=== PATIENT | female | born 1940 | race Caucasian/White ===

== ENCOUNTER → 2019-11-13 09:01 | Outpatient (CLI) | payer MEDICARE, BC, SELFPAY ==
--- NOTE | 2019-11-13 | DI.ECHO.S_ITS ---
[place] [facility] +---------+ : : [address] [place] [place] : : : : [id number] : : : : Phone: [phone]+ Echocardiogram Report + + :Name: MCKAYLA MEJIA Study Date: 11/13/2019 Height: 62 in : :[facility] Weight: 110 lb : : Gender: Female BSA: 1.5 m2 : :: 1940 Age: 79 yrs BP: 142/64 mmHg: :Reason For Study: Murmur : : Performed By: Caity Piedra : :Referring: JEFFREY NIETO L : + + Interpretation Summary The ejection fraction is estimated to be 60-65%. There is mild aortic valve sclerosis. There is mild aortic regurgitation. There is mild tricuspid regurgitation. The right ventricular systolic pressure is estimated to be at least 28 mmHg based on an estimated right atrial pressure of 3 mm Hg. Procedure: A two-dimensional transthoracic echocardiogram with color flow and Doppler was performed. The study quality was technically adequate. There is no prior echocardiogram noted for this patient. The patient was in normal sinus rhythm during the exam. Left Ventricle: There is moderate proximal septal thickening noted. The left ventricle is normal in size. The LVOT velocity is 1.03 m/s. The left ventricular outflow velocity with valsalva is 1.50m/s. The ejection fraction is estimated to be 60-65%. Left ventricular wall motion is normal. Diastolic parameters suggest probable normal left ventricular diastolic function and normal filling pressures. Right Ventricle: The right ventricle is normal in size and function. Atria: Both atria are normal in size. There is no Doppler evidence for an interatrial shunt. Mitral Valve: The mitral valve is normal in structure and function. There is trace mitral regurgitation. Aortic Valve: The aortic valve opens well. The aortic valve is trileaflet. There is mild aortic valve sclerosis. There is no aortic valve stenosis. There is mild aortic regurgitation. Tricuspid Valve: The tricuspid valve is normal in structure and function. There is mild tricuspid regurgitation. The right ventricular systolic pressure is estimated to be at least 28 mmHg based on an estimated right atrial pressure of 3 mm Hg. Pulmonic Valve: The pulmonic valve is normal in structure and function. There is mild pulmonic regurgitation. Great Vessels: The aortic root is normal size. The ascending aorta is mildly enlarged. The IVC is of normal diameter and collapses greater than 50% with a sniff. This suggests a low right atrial pressure of 3 mm Hg. Pericardium/ Pleura There is no pericardial effusion. MMode/2D Measurements & Calculations LVIDd: 4.1 cm LVOT diam: 1.9 cm LVIDs: 2.5 cm Ao root diam: 3.0 cm FS: 39.1 % asc Aorta Diam: 3.5 cm EPSS: 0.32 cm Ao Arch Diam (Prox Trans): 2.6 cm IVSd: 0.88 cm LVPWd: 0.97 cm LV santana. diameter/BSA (cm/m^2): 2.8 LV sys. diameter/BSA (cm/m^2): 1.7 LA A2 area: 16.7 cm2 RA long axis: 4.6 cm LA A4 area: 15.5 cm2 RA area: 14.0 cm2 LA length (vol): 4.7 cm RA vol: 36.2 ml LA vol: 46.5 ml RA : 24.4 ml/m2 LA vol index: 31.4 ml/m2 IVC diam: 0.92 cm RVD1 (basal): 3.4 cm RVD2 (mid): 2.8 cm TAPSE: 1.8 cm Doppler Measurements & Calculations Ao V2 max: 152.0 cm/sec LVOT Max Bharat: 149.3 cm/sec Ao V2 mean: 114.6 cm/sec LV V1 max P.9 mmHg Ao max P.2 mmHg LV V1 VTI: 35.1 cm Ao mean P.6 mmHg ANDRY(I,D): 2.9 cm2 Ao V2 VTI: 34.4 cm ANDRY(V,D): 2.8 cm2 sev ratio: 1.0 ANDRY indexed to BSA (cm^2/m^2): 2.0 AI P1/2t: 495.8 msec AI dec slope: 213.5 cm/sec2 MV E max bharat: 91.8 cm/sec TR max bharat: 251.2 cm/sec MV A max bharat: 100.4 cm/sec TR max P.3 mmHg MV E/A: 0.91 PA V2 max: 80.8 cm/sec Med Peak E' Bharat: 6.4 cm/sec PA V2 mean: 60.0 cm/sec E/E' med: 14.3 PA mean P.6 mmHg Lat Peak E' Bharat: 6.7 cm/sec PA pr(Accel): 22.9 mmHg E/E' lat: 13.6 E/e' average: 14.0 MV dec time: 0.23 sec MV P1/2t: 64.3 msec MV P1/2t max bharat: 93.2 cm/sec SV(LVOT): 99.7 ml MVA(2t): 3.4 cm2 Reading Physician:11:07 AM
== END ==
PROVIDERS: PCP Internal Medicine; Referring Provider Internal Medicine; Visit Provider Internal Medicine
DX: R01.1 Cardiac murmur, unspecified (principal)
CPT/HCPCS: 93306

== ENCOUNTER 2020-09-30 12:17 | Emergency (ER) | payer MEDICARE, OTHER, SELFPAY ==
[2020-09-30 12:19] VITALS: BP 203/95; PULSE 85; RESP 16; TEMP 36.7; O2SAT 100
--- NOTE | 2020-09-30 12:45 | DI.RAD.S_ITS ---
PROCEDURE: XR FOOT RT MIN 3V INDICATIONS: r/o FB on foot pad btw 3-4 toe, patient stepped on glass TECHNIQUE: 3 views of the foot were acquired. COMPARISON: None. FINDINGS: Bones: No fractures or dislocations. No suspicious bony lesions. Soft tissues: No tibiotalar joint effusion. Achilles tendon appears normal. IMPRESSION: No foreign body or trauma found. 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 Dictated by: Oswaldo Major M.D. on 09/30/2020 at 13:44 Approved by: Oswaldo Major M.D. on 09/30/2020 at 13:45
--- NOTE | 2020-09-30 12:52 | ED_ITS ---
HPI - Extremity Injury (Lower) <CELIA Real - Last Filed: 09/30/20 14:54> General Chief Complaint: Extremity Injury, Lower Stated Complaint: RIGHT FOOT PAIN Time Seen by Provider: 09/30/20 12:20 Source: patient Mode of arrival: Ambulatory Limitations: no limitations History of Present Illness HPI Narrative: 79yo female presents the emergency department for concerns about last in her right foot. She states approximately 2 weeks ago she stepped on some glass, her family member removed a piece of it. However, when healed she developed a callus. She is concerned she may still have glass in her foot. She states it may be a corn but when she called to make an appointment with the chair installer, they referred her to the ER to rule out any glass in her foot. Patient states that she has chronic right foot numbness from back surgeries in 2017, no worsening of this. Fifth toe not present. Patient denies any further injury, fevers, chills, nausea, vomiting, diarrhea, or any other concerns. Review of Systems <CELIA Real - Last Filed: 09/30/20 14:54> Review of Systems Narrative: REVIEW OF SYSTEMS: GENERAL: Denies fever or chills. HENT: No head trauma. CARDIOVASCULAR: No chest pain or syncope. RESPIRATORY: No cough. GASTROINTESTINAL: No nausea or vomiting. GENITOURINARY: No flank pain. MUSCULOSKELETAL: Complains of foot pain, see HPI. INTEGUMENTARY: No rash. Patient History <CELIA Real - Last Filed: 09/30/20 14:54> Medical History No significant medical problems Surgical History History of back surgery Social History Smoking Status: Never smoker Smoking Status: Never smoker alcohol intake frequency: 0-2 drinks per day Substance Use Type: does not use Exam <CELIA Real - Last Filed: 09/30/20 14:54> Initial Vital Signs Initial Vital Signs: Vital Signs Temperature 98.1 F 09/30/20 12:19 Pulse Rate 85 09/30/20 12:19 Respiratory Rate 16 09/30/20 12:19 Blood Pressure 203/95 H 09/30/20 12:19 Pulse Oximetry 100 09/30/20 12:19 PHYSICAL EXAMINATION: GENERAL: Awake and alert, answers questions appropriately. HENT: Normocephalic, atraumatic. EYES: Symmetrical, sclera white, no periorbital swelling. CARDIOVASCULAR: Regular rate. RESPIRATORY: Normal respiratory rate, trachea midline, airway patent. No stridor, nasal flaring or accessory muscle use. MUSCULOSKELETAL: A small 1-2 cm callus noted on foot pad between 3rd and 4th toe. Fifth toe not present on foot. No surrounding erythema or ecchymosis, small amount of tenderness noted with palpation to this area. Normal gait and coordination. Equal tone and mass bilaterally. EXTREMITIES: CMS intact. No pedal edema. SKIN: Warm, dry, soft, appropriate color for ethnicity. No lesions, rashes, or wounds. NEURO: Alert and Oriented X 3. No sensory deficits. PSYCH: Appropriate affect and mood. <Em Jean DO - Last Filed: 09/30/20 18:29> Initial Vital Signs Initial Vital Signs: Vital Signs Temperature 98.1 F 09/30/20 12:19 Pulse Rate 85 09/30/20 12:19 Respiratory Rate 16 09/30/20 12:19 Blood Pressure 203/95 H 09/30/20 12:19 Pulse Oximetry 100 09/30/20 12:19 Course <CELIA Real - Last Filed: 09/30/20 14:54> Orders Ordered: ED Orders 09/30/20 12:45 XR foot RT min 3V Stat Vital Signs Vital signs: Vital Signs - 8 hr 09/30/20 12:19 09/30/20 14:20 Temperature 98.1 F Pulse Rate 85 68 Respiratory Rate 16 14 Blood Pressure 203/95 H 144/62 H Pulse Oximetry 100 99 <Em Jean DO - Last Filed: 09/30/20 18:29> Orders Ordered: ED Orders 09/30/20 12:45 XR foot RT min 3V Stat Vital Signs Vital signs: Vital Signs - 8 hr 09/30/20 12:19 09/30/20 14:20 Temperature 98.1 F Pulse Rate 85 68 Respiratory Rate 16 14 Blood Pressure 203/95 H 144/62 H Pulse Oximetry 100 99 MDM - Extremity Injury (Lower) <CELIA Real - Last Filed: 09/30/20 14:54> Medical Records Attestation: I reviewed the patient's medical records. Lab Data Attestation: I reviewed the patient's lab results. Imaging Data Extremity x-ray #1: Radiologist's Impression: [address] [id number] ReportSigned Patient: Marizol MccartyMR#: [id number]: 1940Acct:[id number]/Sex: 79 / FDate of Service: 09/30/20Loc: EDAccession Number: [id number] Procedure: XR foot RT min 3V Ordering Provider: Tamia Zaldivar PROCEDURE: XR FOOT RT MIN 3V INDICATIONS: r/o FB on foot pad btw 3-4 toe, patient stepped on glass TECHNIQUE: 3 views of the foot were acquired. COMPARISON: None. FINDINGS: Bones: No fractures or dislocations. No suspicious bony lesions. Soft tissues: No tibiotalar joint effusion. Achilles tendon appears normal. IMPRESSION: No foreign body or trauma found. 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 Dictated by: Oswaldo Major M.D. on 09/30/2020 at 13:44 Approved by: Oswaldo Major M.D. on 09/30/2020 at 13:45 [facility] Narrative Medical decision making narrative: 79-year-old female presenting to the emergency department for concerns of a piece of glass in her foot. Differential includes callus versus corn. X-rays negative for any foreign objects. Patient states she noticed some increased tenderness when stepping on the area. She states she contacted a chair installer today but they told her to be seen in the ER for possible glass in her foot. No concerns for infection due to lack of erythema, swelling, and fluctuance. Patient was referred to Podiatry. Return precautions given for new or worsening symptoms. She agrees to plan of care verbalized understanding. Discharge Plan Departure Patient Disposition: Home Clinical Impression: [place] of foot Instructions: DI for Calluses and Corns Activity Restrictions/Additional Instructions: Thank you for entrusting me with your care today. As discussed, your x-rays negative for any glass or foreign objects in your foot. I suspect this is most likely a callus or corn. Please follow-up with a chair installer is also below for further evaluation and treatment. Return emergency department for any new or worsening symptoms especially increased redness, severe pain, high fevers, or any other concerns. Referrals: Kaia Riley DPM [Physician] - Marisa Alejandro MD [Primary Care Provider] -
[2020-09-30 14:20] VITALS: BP 144/62; PULSE 68; RESP 14; O2SAT 99
== END 2020-09-30 14:21 | disposition home or self-care (01) ==
PROVIDERS: Emergency Provider Nurse Practitioner; PCP Internal Medicine
DX: L84 Corns and callosities (principal)
CPT/HCPCS: 73630; 99283

== ENCOUNTER → 2020-11-27 12:59 | Outpatient (CLI) | payer MEDICARE, OTHER, SELFPAY ==
--- NOTE | 2020-11-27 | DI.RAD.S_ITS ---
PROCEDURE: XR CERVICAL SPINE 2V OR 3V INDICATIONS: Cervicalgia TECHNIQUE: 3 view(s) of the cervical spine were acquired. COMPARISON: None. FINDINGS: Bones: No fractures or dislocations to the T1 level. The lateral masses of C1 appear intact on the odontoid view. No suspicious bony lesions. Soft tissues: No prevertebral soft tissue swelling. IMPRESSION: No trauma found, there is moderate degenerative disc disease from C4 through C7, best seen on the lateral view. This degeneration results in anterior and posterior projecting osteophytes to the degree that some component of spinal and foraminal stenosis would be expected. Dictated by: Oswaldo Major M.D. on 11/27/2020 at 15:41 Approved by: Oswaldo Major M.D. on 11/27/2020 at 15:42
== END ==
PROVIDERS: PCP Student in an Organized Health Care Education/Training Program; Referring Provider Student in an Organized Health Care Education/Training Program; Visit Provider Student in an Organized Health Care Education/Training Program
DX: M50.121 Cervical disc disorder at C4-C5 level with radiculopathy (principal)
CPT/HCPCS: 72040

== ENCOUNTER → 2021-06-26 15:58 | Outpatient (CLI) | payer MEDICARE, OTHER, SELFPAY ==
--- NOTE | 2021-06-26 16:00 | DI.MRI.S_ITS ---
PROCEDURE: MR CERVICAL SPINE WO CON INDICATIONS: SPINAL STENOSIS,CERVICAL REGION TECHNIQUE: Noncontrast sagittal T1 spin echo and T2 fast spin echo, sagittal STIR, foraminal oblique sagittal T2 fast spin echo, and axial gradient echo or T2 fast spin echo through the cervical spine. COMPARISON: [facility] [place], CR, XR CERVICAL SPINE WITH OBLIQUES, 06/15/2021, 10:03. FINDINGS: Image quality: Excellent. Alignment and Curvature: There is grade 1 anterolisthesis of C3 on C4, 1-2 mm, C7 on T1 1 mm, grade 1 retrolisthesis of C5 on C6, 2-3 mm, C6 on C7-1 to 2 mm. Bone Marrow: Marrow demonstrates normal overall signal. Cystic changes noted within the odontoid as well as surrounding soft tissue prominence. Mild reactive endplate changes are present at C5-6, C6-7. Spinal Cord: Visualized spinal cord has normal size and signal. No cerebellar tonsillar herniation. Paraspinous Soft Tissues: No paravertebral masses. Prevertebral soft tissues are normal in thickness. Discs: Moderate to severe desiccation is present throughout the cervical spine. C2-C3: Mild disc bulge without spinal stenosis or foraminal narrowing. C3-C4: Mild disc bulge with mild spinal stenosis. Mild bilateral foraminal narrowing with uncovertebral hypertrophy. C4-C5: Mild disc bulge without spinal stenosis. Severe left and moderate to severe right foraminal narrowing with uncovertebral hypertrophy. C5-C6: Mild disc bulge with moderate spinal stenosis. Severe bilateral foraminal narrowing with uncovertebral hypertrophy. C6-C7: Mild disc bulge with mild spinal stenosis. Severe bilateral foraminal narrowing, left greater than right with uncovertebral hypertrophy. C7-T1: Mild disc bulge without spinal stenosis. Moderate bilateral foraminal narrowing with uncovertebral hypertrophy. IMPRESSION: 1. Multilevel spinal stenosis overall [id number] most significant at C5-6 secondary to disc bulge. 2. Multilevel moderate to severe foraminal narrowing secondary to uncovertebral arthropathy. 3. Cystic like change with soft tissue prominence at the dens. This is overall suggestive of degenerative change and/or crystal deposition entities such as hyperparathyroidism and arthritic disease. As clinically indicated, further evaluation with CT cervical spine may be obtained. Dictated by: Valerie Gardner M.D. on 06/29/2021 at 8:31 Approved by: Valerie Gardner M.D. on 06/29/2021 at 8:38
== END ==
PROVIDERS: PCP Student in an Organized Health Care Education/Training Program; Referring Provider Physical Medicine & Rehabilitation Pain Medicine; Visit Provider Physical Medicine & Rehabilitation Pain Medicine
DX: M48.02 Spinal stenosis, cervical region; M50.222 Other cervical disc displacement at C5-C6 level; M47.812 Spondylosis without myelopathy or radiculopathy, cervical region
CPT/HCPCS: 72141

== ENCOUNTER → 2022-06-30 12:08 | Outpatient (CLI) | payer MEDICARE, OTHER, SELFPAY ==
--- NOTE | 2022-06-30 12:11 | DI.NM.S_ITS ---
PROCEDURE: NM BONE 3 PHASE RADIOPHARMACEUTICAL: 21.6 mCi Tc-99m MDP IV. INDICATIONS: RIGHT KNEE REPLACEMENT TECHNIQUE: Multiple bone scintigrams were obtained after intravenous injection of Tc-99m MDP, including flow, blood pool, and delayed images centered to the region of interest. COMPARISON: [facility], CR, XR KNEE 1 OR 2 VIEWS RIGHT, 03/03/2022, 8:57. FINDINGS: A triple phase bone scan was obtained, including flow, blood pool and delayed images centered to the knees. The flow and blood pool images demonstrate symmetrical vascular activity. Delayed images demonstrate mildly increased uptake in the area of the right patella. There is right knee arthroplasty. IMPRESSION: 1. Right knee arthroplasty. Mildly increased uptake is noted in the area of patella, which is nonspecific. No definitive scintigraphic findings to suggest prosthesis loosening or infection. Dictated by: Adam Moore M.D. on 06/30/2022 at 18:47 Approved by: Adam Moore M.D. on 06/30/2022 at 18:50
== END ==
PROVIDERS: PCP Student in an Organized Health Care Education/Training Program; Referring Provider Student in an Organized Health Care Education/Training Program; Visit Provider Student in an Organized Health Care Education/Training Program
DX: M25.561 Pain in right knee (principal); Z96.651 Presence of right artificial knee joint
CPT/HCPCS: 78315; A9503

== ENCOUNTER → 2022-11-18 12:32 | Outpatient (CLI) | payer MEDICARE, OTHER, SELFPAY ==
--- NOTE | 2022-11-18 12:35 | DI.CT.S_ITS ---
PROCEDURE: CT KNEE RIGHT WITHOUT CON INDICATIONS: PAIN DUE TO TOTAL KNEE REPLACEMENT TECHNIQUE: Noncontrast 1-1.5 mm axial sections acquired from the mid-patella to the proximal tibia, with coronal and sagittal reformats. COMPARISON: None. FINDINGS: Image quality: Diagnostic. Significant beam hardening artifacts are seen. Bones: Patient is status post right total knee arthroplasty. Right knee alignment is anatomic. There is no evidence of hardware loosening or failure. No acute fracture or dislocation is seen. No suspicious intraosseous lesion. No significant malrotation of tibial and femoral components is seen. Soft tissues: There is no abnormal soft tissue calcifications. No significant joint effusion. No calcified intra-articular loose bodies. No full-thickness quadriceps tendon or patellar tendon rupture. Cruciate ligaments are not well seen on this study. IMPRESSION: 1. Prior right total knee arthroplasty with anatomic alignment . No right knee fracture or dislocation. No gross hardware loosening or failure. No acute fracture or dislocation. 2. No suspicious bony lesions. No significant joint effusion or intra-articular loose bodies. No abnormal soft tissue calcifications. Dictated by: Rickey Henry M.D. on 11/18/2022 at 16:57 Approved by: Rickey Henry M.D. on 11/18/2022 at 17:01
== END ==
PROVIDERS: PCP Student in an Organized Health Care Education/Training Program; Referring Provider Orthopaedic Surgery; Visit Provider Orthopaedic Surgery
DX: T84.84XA Pain due to internal orthopedic prosthetic devices, implants and grafts, initial encounter (principal); Z96.651 Presence of right artificial knee joint
CPT/HCPCS: 73700

== ENCOUNTER 2023-01-27 06:23 | Inpatient (IN) | payer MEDICARE, OTHER, SELFPAY ==
[2023-01-24 15:24] VITALS: BMI 20.5
[2023-01-27 07:06] VITALS: BP 161/72; PULSE 73; RESP 16; TEMP 36.3; O2SAT 100; BMI 21.1
--- NOTE | 2023-01-27 07:15 | PM.PREOP ---
Pre-operative Note Interval Note History & Physical reviewed/Exam performed by Physician: Yes Changes to H&P: No
[2023-01-27] MEDS: VANCOMYCIN 1,000 MG/200 ML PIGGYBACK 200 MG IV (07:16)
[2023-01-27] MEDS: ACETAMINOPHEN 325 MG TABLET 975 MG PO (07:17)
[2023-01-27] MEDS: PREGABALIN 75 MG CAPSULE PO (07:17)
[2023-01-27] MEDS: LACTATED RINGERS 1,000 ML 42 ML IV (07:18)
--- NOTE | 2023-01-27 07:20 | P.OP_ITS ---
Operative Date/Time/Diagnoses Date of procedure: 01/27/23 Time of procedure: 07:50 Pre-op diagnosis: History of right total knee arthroplasty with ongoing patellofemoral symptoms Post-op diagnosis: same Procedure & Clinicians Procedure: Revision right total knee arthroplasty 1 component Same procedure as scheduled: Yes Indications: The patient has had progressively worsening right knee pain with radiographic changes consistent with patellofemoral arthritis. She previously had a right total knee arthroplasty without revision or resurfacing of the patella. She notes persistent significant symptoms and she is brought to the operating room revision total knee arthroplasty with possible polyethylene exchange and resurfacing of the patella. Non-operative management has failed and the patient has requested total knee replacement. The risks, benefits and alternatives to surgery were discussed with the patient prior to proceeding. Risks discussed included, but were not limited to, failure to relieve pain, stiffness, infection, nerve damage, deep venous thrombosis, pulmonary embolism, stroke, coma, heart attack, permanent paralysis and , as well as the potential need for eventual revision of the prosthetic. Surgeon: Alejandra Platt Cardiovascular Disease Specialist: Venessa Sandoval Operative Notes Findings: Severe right knee patellofemoral OA, no evidence of femoral or tibial component loosening, no evidence suggestive of infection. Obvious arthritic change on the patella Closure Type: primary Specimen(s): none sent Prosthetic devices, grafts, tissues, transplants, or devices: Platt and nephew patellar component size 32 x 7-1/2 mm Estimated Blood Loss (mL): 100 Blood products transfused: none Tourniquet time (min): 31 Procedure in detail: The patient was seen in the pre-operative area, where the patient identified the right knee as the operative site and this was marked with my initials. The patient received pre-operative antibiotics, and was taken to the operating room and placed on the operative table in the supine position. After satisfactory anesthesia, a multimedia project manager out was performed. The right leg was encircled with a tourniquet about the proximal thigh, and the leg was prepared from the toes to the tourniquet with ChloroPrep in the usual fashion and draped through sterile drapes. The leg was elevated and exsanguinated with Eschmark bandage and the tourniquet inflated to [250] mmHg pressure. A physician's dental ceramist assistant or PA was used throughout the procedure for careful retraction of the knee and intraoperative positioning. They were used for allowing adequate visualization of the knee and adequate hemostasis. The knee was approached through an approximately 18 cm incision centered over the patella and carried into the knee through a medial parapatellar arthrotomy. I carefully checked the stability of the knee. There was good stability in full extension and at 90?. There was minimal medial opening in mid flexion. It was not felt that we should go up 1 additional on the polyethylene. The patella was noted to track centrally but there was substantial scar around the patella evidence of softening and some buildup of tissue over the patella. Soft tissue was carefully mobilized around the patella the patella was measured with a caliper. Bone was resected from the patella and the patellar height was reconstituted with up an appropriate sized patellar component. There was a region in the mid section of the patella which showed evidence of cystic changes, some bony edema and some patellar softening. The bone was felt to be adequate for reconstruction. The knee was meticulously injected with part of a mixture of 60 ml 0.25% Marcaine mixed with 20 ml Exparel for post operative pain control. The remainder of this mixture was injected into the capsule and subcutaneous tissues during cement curing. Range of motion was [0-130], with good stability throughout the range. The bone was prepared with pulsatile lavage, and dried with a sponge. Cement was applied and the final prosthetics placed. Excess cement was removed during and after cement curing. A brief Betadine soak was performed. The knee was copiously irrigated and the tourniquet deflated. Hemostasis was obtained with the Bovie cautery. The capsule was closed with interrupted nonabsorbable suture. The subcutaneous layer was closed with barbed sutures, and the skin with a running 3-0 V-Lock suture and Surgical glue. An Aquamantys dressing was applied and the patient was taken to recovery having tolerated the procedure well. Complications: none Post-operative Condition: stable Disposition: Acute Care Plan for aftercare: The patient will be maintained on a standard total knee replacement protocol with weight bearing as tolerated. The patient will receive aspirin and sequential compression devices for DVT prophylaxis. The patient will be dis charged home when safe for the home environment.
[2023-01-27 07:59] LABS: COVID19 -Nasal RAPID Negative (Negative)
[2023-01-27] MEDS: CEFAZOLIN 2 GM/100 ML PREMIX 100 ML IV (08:00)
[2023-01-27] MEDS: TRANEXAMIC ACID 1,000 MG VIAL 1000 MG INJ ×2 (08:09→08:46)
--- NOTE | 2023-01-27 08:23 | SUR.OPER ---
Supine on padded OR bed. Pillow under head, arms secured on padded armboards <90 degree abduction. Safety belt across torso. Non-operative leg secured with tape over blanket over lower leg. Operative leg secured in DeMayo positioner. Foam padded brace at thigh of operative leg.
[2023-01-27] MEDS: BUPIVACAINE LIPOSOME 266 MG/20 ML VIAL INJ (08:39)
[2023-01-27] MEDS: BUPIVACAINE 0.25% (PF) 60 ML, EPINEPHrine 0.3 MG INJ (08:40)
[2023-01-27] MEDS: SODIUM CHLORIDE IRRIG SOLUTION 250 ML, POVIDONE-IODINE SPONGE STICKS 1 APPLIC IRR (09:02)
[2023-01-27 09:17] VITALS: BP 132/55; PULSE 77; RESP 12; TEMP 36.2; O2SAT 99
[2023-01-27 09:22] VITALS: BP 141/62; PULSE 81; RESP 14; O2SAT 99
[2023-01-27 09:28] VITALS: BP 129/62; PULSE 77; RESP 14; O2SAT 99
[2023-01-27 09:33] VITALS: BP 137/74; PULSE 91; RESP 15; O2SAT 98
[2023-01-27 09:34] VITALS: BP 137/74; PULSE 92; RESP 12; O2SAT 98
== END 2023-01-27 10:03 | disposition home or self-care (01) | DRG 464 ==
PROVIDERS: Admitting Provider Orthopaedic Surgery; PCP Student in an Organized Health Care Education/Training Program; Referring Provider Orthopaedic Surgery; Visit Provider Orthopaedic Surgery
PROC: 0SPC0NZ Removal of Patellofemoral Synthetic Substitute from Right Knee Joint, Open Approach (ICD-10-PCS; principal; 2023-01-27 07:45)
DX: M17.11 Unilateral primary osteoarthritis, right knee (principal); T84.84XA Pain due to internal orthopedic prosthetic devices, implants and grafts, initial encounter; M11.261 Other chondrocalcinosis, right knee; Z96.641 Presence of right artificial hip joint; Z20.822 Contact with and (suspected) exposure to COVID-19
CPT/HCPCS: 87070; 87075; 87176; 87205; 87635; C1776; C9803; C9290; J0171; J0330; J0690; J1170; J2405; J2704; J3010

== ENCOUNTER → 2024-05-04 09:12 | Outpatient (CLI) | payer MEDICARE, OTHER, SELFPAY ==
--- NOTE | 2024-05-04 | DI.NM.S_ITS ---
PROCEDURE: NM BONE SCAN WHOLE BODY RADIOPHARMACEUTICAL: 20.2 mCi Tc-99m MDP IV. INDICATIONS: EVAL POSS FRACTURE, BONE LOSS / OSTEOPOROSIS TECHNIQUE: Delayed whole-body scintigrams were obtained approximately 3-4 hours after intravenous injection of radiotracer. Anterior and posterior views were acquired from vertex to feet. Additional left and right oblique views of the lower extremities were obtained. COMPARISON: [facility], CR, XR PELVIS WITH LATERAL HIP LEFT, 11/08/2023, 10:14. [facility], CR, XR HAND 3+ VIEWS LEFT, 02/22/2024, 9:04. [facility], CR, XR PELVIS WITH LATERAL HIP RIGHT, 07/20/2023, 16:50. [facility], CR, XR SHOULDER 2+ VIEWS RIGHT, 03/02/2024, 10:32. [facility], CR, XR KNEE 4+ VIEWS RIGHT, 04/19/2024, 9:54. FINDINGS: There is normal urinary uptake in the bladder. The kidneys are not well seen, possibly representing dysfunction. (Super scan appearance from malignancy is not favored given provided history) Right knee arthroplasty changes, with minimal surrounding uptake. Right hip arthroplasty changes, with ufcz-ev-aslctviv surrounding uptake. There are advanced degenerative changes in the upper and lower extremities, asymmetric toward right. Fracture deformity related uptake is seen in the proximal humerus. Amorphous uptake is seen projecting over the right pelvis. IMPRESSION: There is minimal uptake around the right knee arthroplasty, which is nonspecific and may be seen with normal postsurgical changes, loosening, and less commonly infection. Tauh-hv-[id number] uptake is also seen around the right hip arthroplasty, with the same differential considerations. An amorphous area of uptake projects over the right pelvis, which is indeterminate on bone scan. A pelvic CT is suggested. Upper and lower extremity degenerative changes. Right proximal humerus uptake likely represents fracture. The kidneys are not well seen, which may be related to renal dysfunction. (Super scan appearance from malignancy is not favored given provided history) Dictated by: Sean Delgadillo M.D. on 05/04/2024 at 14:47 Approved by: Sean Delgadillo M.D. on 05/04/2024 at 14:52
--- NOTE | 2024-05-04 | DI.RAD.S_ITS ---
PROCEDURE: XR DEXA AXIAL SKELETON INDICATIONS: EVAL POSS FRACTURE, BONE LOSS / OSTEOPOROSIS COMPARISON: None. FINDINGS: Left Hip: Bone mineral density 0.688 g/cm2, T score -2.1, osteopenia. Left Femoral Neck: Bone mineral density 0.558 g/cm2, T score -2.6, osteoporosis. Left Forearm: Bone mineral density 0.518 g/cm2, T score -2.9, osteoporosis. Fracture Risk Calculation (when applicable): Not reported due to osteoporosis (T score greater or equal to -1.0 to: NORMAL) (T score from -1.1 to -2.4: OSTEOPENIA) (T score less than or equal to -2.5: OSTEOPOROSIS) IMPRESSION: Osteoporosis. Follow-up guidelines as follows: Osteoporosis: Consider a repeat DEXA and Vertebral Fracture Assessment (VFA) exam in 2 years or sooner if medically necessary, to reassess this patient's status. Osteopenia: Consider a repeat DEXA in 2-3 years to reassess this patient's status, or if there is a new clinical indication. Normal: Consider a repeat DEXA in 5 years or sooner, or if there is a new clinical indication. All treatment decisions require clinical judgment and consideration of individual patient factors, including patient preferences, comorbidities, previous drug use, risk factors not captured in the FRAX model (e.g., frailty, falls, vitamin D deficiency, increased bone turnover, interval significant decline in bone density ) and possible under- or over-estimation of fracture risk by FRAX. In addition, the NOF Guide recommends that FDA-approved medical therapies be considered in postmenopausal women and men age >= 50 years with a: * Hip or vertebral (clinical or morphometric) fracture * T-score of <=-2.5 at the spine or hip * Ten-year fracture probability by FRAX of >= 3% for hip fracture or >=20% for major osteoporotic fracture. People with diagnosed cases of osteoporosis or at high risk for fracture should have regular bone mineral density tests. For patients eligible for Medicare, routine testing is allowed once every 2 years. The testing frequency can be increased to one year for patients who have rapidly progressing disease, those who are receiving or discontinuing medical therapy to restore bone mass, or have additional risk factors. Dictated by: Edmundo Bean M.D. on 05/04/2024 at 18:37 Approved by: Edmundo Bean M.D. on 05/04/2024 at 18:38
== END ==
PROVIDERS: PCP Family Medicine; Referring Provider Physician Assistant; Visit Provider Physician Assistant
DX: M81.0 Age-related osteoporosis without current pathological fracture (principal); Z98.1 Arthrodesis status
CPT/HCPCS: 77080; 77081; 78306; A9503